=== PATIENT | female | born 1995 | race Caucasian/White ===

== ENCOUNTER 2021-03-23 08:08 | Inpatient (IN) | payer BC, MEDICAID, SELFPAY ==
[2021-03-23] VITALS (55 sets, daily range): BP systolic 94–135; BP diastolic 54–93; PULSE 76–105; RESP 16–18; TEMP 35.9–36.8; O2SAT 99–100; BMI 33.7
[2021-03-23] MEDS: dextrose 5%-lactated ringers 1,000 ML 125 ML IV (08:58)
[2021-03-23] MEDS: oxytocin 30 UNIT/500 ML BAG IV (08:58)
[2021-03-23 09:15] LABS: Basophils % 0.3 %; Eosinophils # 0.1 10^3/uL (0.0-0.8); Eosinophils % 0.8 %; Hematocrit 35.4 % (37.0-47.0); Hemoglobin 11.9 g/dL (11.5-15.3); Lymphocytes # 1.7 10^3/uL (0.8-4.8); Mean Corpuscular HGB Conc 33.6 g/dL (30.0-36.0); Mean Corpuscular Hemoglobin 28.2 pg (28.0-34.0); Mean Corpuscular Volume 83.9 fl (81-99); Mean Platelet Volume 11.1 fL (7.4-10.4); Monocytes # 0.7 10^3/uL (0.2-0.9); Monocytes % 8.3 %; Neutrophils # 5.53 10^3/uL (1.8-7.7); Neutrophils % 69.2 %; Nucleated Red Blood Cells % 0 %; Platelet Count 207 10^3/cmm (130-400); Red Blood Count 4.22 10^6/uL (4.1-5.3); Red Cell Distribution Width 13.4 % (12.1-15.1)
--- NOTE | 2021-03-23 12:41 | PM.OPHPUD ---
Labor & Delivery H&P Update Date of Procedure: March 23, 2021 Date H&P Performed: 03/19/21 Admission Diagnosis: induction
[2021-03-23] MEDS: fentaNYL 50 mcg/mL INJ 2mL IVP (14:45)
[2021-03-23] MEDS: lactated ringers 1,000 ML 999 ML IV (14:47)
--- NOTE | 2021-03-23 15:52 | P.ANESASSM_ITS ---
Pre-Anesthetic Assessment Pre-Anesthetic Assessment: Height/Weight: Height 1.68 m Weight 94.801 kg Temp Pulse Resp BP Pulse Ox 97.3 F L 96 17 115/57 99 03/23/21 12:31 03/23/21 15:50 03/23/21 14:45 03/23/21 15:48 03/23/21 15:50 Preop Diagnosis: Active Labor Familial anesthetic complications: none Was Beta Delisa taken within 24 hours: N/A Was Clonidine taken within 24 hours: N/A Last intake: meal 0630 clear liquids Social: Social History: No alcohol and No tobacco Exam: Pre-Anes Outpt Exam: alert, oriented x 3 and clear to auscultation bilaterally Airway: Submandibular: WNL Cervical ROM: WNL MP: 2 Dentition: Full History/ROS: No significant history except as noted Pulmonary: Pulmonary: None reported CV/HEM: CV/HEM: None reported : : None reported Hepatic: Hepatic: None reported GI: GI: None reported Metabolic: Metabolic: None reported Musc/skel: Musc/skel: None reported Neuropsych: Neuropsych: None reported Anesthetic Plan: ASA status: 2 Anesthesia: Eval. for regional block Risk of > 500 ml blood loss (7ml/kg in children): No Meds/Allergies Current Medications: Current Medications Generic Name Dose Route Start Last Admin Trade Name Freq PRN Reason Stop Dose Admin Fentanyl 25 - 100 mcg 03/23/21 14:34 03/23/21 14:45 Fentanyl 50 Mcg/ Ml Inj 2ml IVP 25 mcg Q1H PRN Administration SEVERE PAIN Oxytocin 30 unit in 500 ml s @ 1 mls/hr 03/23/21 08:30 03/23/21 12:00 Pitocin IV 20 milliunit/min .Q24H SHAYNE 20 mls/hr Titration Protocol 1 MILLIUNIT/MIN Dextrose/Lactated Ringer's 1,000 mls @ 125 m ls/hr 03/23/21 08:30 03/23/21 14:47 Dextrose 5%-Lact ated Ringers IV Infused .Q8H SHAYNE Infusion Ropivacaine 200 mg in 100 mls @ 13 mls/hr 03/23/21 12:15 03/23/21 15:31 Naropin Premix EPIDURAL 13 mls/hr .Q7H42M SHAYNE Administration Lactated Ringer's 1,000 mls @ 999 m ls/hr 03/23/21 12:12 03/23/21 14:47 Lactated Ringers IV 999 mls/hr .Q1H1M PRN Administration See label comment s PFSH Anesthesia Female Reproductive History: : 2 Data Anesthesia CBC & Chem 7: 03/23/21 08:30 Other Labs: Laboratory Results - last 48 hr 03/23/21 08:30 WBC 8.0 RBC 4.22 Hgb 11.9 Hct 35.4 L MCV 83.9 MCH 28.2 MCHC 33.6 RDW 13.4 Plt Count 207 MPV 11.1 H Neut % (Auto) 69.2 Lymph % (Auto) 21.0 [place] % (Auto) 8.3 Eos % (Auto) 0.8 Baso % (Auto) 0.3 Neut # (Auto) 5.53 Lymph # (Auto) 1.7 [place] # (Auto) 0.7 Eos # (Auto) 0.1 Baso # (Auto) 0.0 Nucleated RBC % (auto) 0 Nucleated RBCs # 0.0 Cardiac Studies: No Data to Display
--- NOTE | 2021-03-23 15:55 | ANES.PROC ---
Anesthesia Procedures Procedure/Date: 03/23/21 Epidural: Time Out Performed: Yes Consents Signed: Procedure Consent Consent: from patient, risks and benefits reviewed and patient agrees to proceed Lumbar Level: L3-L4 Epidural position: sitting Epidural procedure: 1% lidocaine to numb the area, negative for paresthesia passed, test dose given, no systemic response, sterile dressing applied, L.U.D. no apparent complications and 0.2% Ropiavacaine @ mls/hr (13) Additional Comments: LUDMILA at 7cm catheter threaded to 13 cm
--- NOTE | 2021-03-23 18:44 | P.PCNOB_ITS ---
Delivery Note: Date of delivery: March 23, 2021 Pre-Delivery Course: The patient had routine care at [facility]. There were no complications during the . Delivery: This is a 26-year-old G2, P1 at 39 weeks gestation who is here for an elective induction. The patient chose to undergo induction to avoid being hospitalized over the holiday. She was favorable for induction and started on high-dose Pitocin. She had artificial rupture of membranes with clear fluid. Rupture of membranes was approximately 6-1/2 hours prior to delivery. The patient received an epidural for pain management. She had a normal spontaneous vaginal delivery. There was a 70 sec shoulder dystocia that was resolved with Adair and corkscrew. The was delivered stunned. Weight 3700 g, 8 pounds 3 ounces, Apgars of 5 and 9. The placenta was delivered grossly intact and normal to inspection. There was a second-degree perineal laceration that was sutured using 3-0 chromic. Mother and infant were doing well after delivery. Estimated blood loss 250 mL. Coding Level of Care Code Acute Hydroelectric Production Technician for Kenyetta Reeves
[2021-03-23] MEDS: ibuprofen 800 mg tablet PO (21:26)
[2021-03-23] MEDS: benzocaine-menthol 78 gm Canister 1 SPRAY TOPICAL (21:27)
[2021-03-24] VITALS (23 sets, daily range): BP systolic 97–124; BP diastolic 59–80; PULSE 71–102; RESP 14–25; TEMP 35.8–37.1; O2SAT 96–98
[2021-03-24 07:12] LABS: Hematocrit 34.3 % (37.0-47.0); Hemoglobin 11.4 g/dL (11.5-15.3); Mean Corpuscular HGB Conc 33.2 g/dL (30.0-36.0); Mean Corpuscular Hemoglobin 27.9 pg (28.0-34.0); Mean Corpuscular Volume 84.1 fl (81-99); Mean Platelet Volume 10.4 fL (7.4-10.4); Platelet Count 209 10^3/cmm (130-400); Red Blood Count 4.08 10^6/uL (4.1-5.3); Red Cell Distribution Width 13.5 % (12.1-15.1); White Blood Count 9.6 10^3/uL (4.0-10.0)
--- NOTE | 2021-03-24 10:25 | ANE.PACU2 ---
Inpatient post-anesthesia follow up: Airway intact: Yes Vital signs: Temperature 97.9 F Pulse Rate 75 Respiratory Rate 18 Blood Pressure 97/59 Pulse Oximetry 100 Oxygen Delivery Me thod Room Air Oxygen Flow Rate Fraction of Inspir ed Oxygen Hydration adequate: Yes Nausea and vomiting: No Pain level: 1 Mental status: Baseline Additional Comments: EMR review
--- NOTE | 2021-03-24 11:07 | PC.NURSE ---
Surgery staff transporting patient via bed to OR.
--- NOTE | 2021-03-24 11:31 | P.ANESASSM_ITS ---
Pre-Anesthetic Assessment Pre-Anesthetic Assessment: Height/Weight: Height 1.68 m Weight 94.801 kg Temp Pulse Resp BP Pulse Ox 97.8 F 71 18 117/72 96 03/24/21 11:22 03/24/21 11:22 03/24/21 11:22 03/24/21 11:22 03/24/21 11:22 Preop Diagnosis: Active Labor Proposed Procedure: Operation Date: 03/24/21 12:00 Proposed Procedures p Bilateral Tubal Ligation(Not Applicable) - Aida Dorman MD Was Beta Delisa taken within 24 hours: N/A Was Clonidine taken within 24 hours: N/A Social: Social History: No alcohol and No tobacco Exam: Pre-Anes Outpt Exam: alert, oriented x 3, clear to auscultation bilaterally and regular rate & rhythm Airway: Submandibular: WNL Cervical ROM: WNL MP: 2 Dentition: Full History/ROS: No significant history except as noted and No significant complaints Pulmonary: Pulmonary: None reported CV/HEM: CV/HEM: None reported : : None reported Hepatic: Hepatic: None reported GI: GI: None reported Metabolic: Metabolic: None reported Musc/skel: Musc/skel: None reported Neuropsych: Neuropsych: None reported Anesthetic Plan: ASA status: 2 Anesthesia: Anesthesia Evaluation and General Risk of > 500 ml blood loss (7ml/kg in children): No Meds/Allergies Current Medications: Current Medications Generic Name Dose Route Start Last Admin Trade Name Freq PRN Reason Stop Dose Admin Benzocaine 1 spray 03/23/21 19:04 03/23/21 21:27 Benzocaine-Menth ol 78 Gm Canister TOPICAL 1 can PRN PRN Administration PAIN Docusate Sodium 100 mg 03/24/21 09:00 03/24/21 09:04 Docusate Sodium 100 Mg Capsule PO Not Given BID SHAYNE Ibuprofen 800 mg 03/23/21 21:00 03/24/21 09:04 Ibuprofen 800 Mg Tablet PO Not Given TID SHAYNE Multivit/ Folic Acid/Iron 1 cap 03/24/21 09:00 03/24/21 09:04 Vitamin Capsule PO Not Given DAILY SHAYNE PFSH Anesthesia Female Reproductive History: : 2 Data Anesthesia CBC & Chem 7: 03/24/21 06:53 Other Labs: Laboratory Results - last 48 hr 03/23/21 03/24/21 08:30 06:53 WBC 8.0 9.6 RBC 4.22 4.08 L Hgb 11.9 11.4 L Hct 35.4 L 34.3 L MCV 83.9 84.1 MCH 28.2 27.9 L MCHC 33.6 33.2 RDW 13.4 13.5 Plt Count 207 209 MPV 11.1 H 10.4 Neut % (Auto) 69.2 Lymph % (Auto) 21.0 [place] % (Auto) 8.3 Eos % (Auto) 0.8 Baso % (Auto) 0.3 Neut # (Auto) 5.53 Lymph # (Auto) 1.7 [place] # (Auto) 0.7 Eos # (Auto) 0.1 Baso # (Auto) 0.0 Nucleated RBC % (auto) 0 Nucleated RBCs # 0.0 Cardiac Studies: No Data to Display
[2021-03-24] MEDS: sodium chloride 0.9% 1,000 ML 30 ML IV (11:38)
--- NOTE | 2021-03-24 13:04 | P.OP_ITS ---
Operative Report Date of procedure: March 24, 2021 Pre-op Diagnosis: Desired permanent surgical sterilization Post-op diagnosis: same Procedure Done: bilateral tubal ligation Specimens removed/disposition: Segments of right and left fallopian tubes Pathology: Segments of right and left fallopian tubes Director Fraud: Aida Dorman MD Anesthesia: General Estimated blood loss (mL): 2 IV fluids (mL): 600 Condition: stable Disposition: PACU Procedure: The infant was the patient was taken to the OR where general anesthe grecia was administered. She was prepped and draped in normal sterile fashion in dorsal supine position. A curvilinear infraumbilical incision was made and carried through to the under lying layer of fascia bluntly using a hemostat. The fascia was grasped with Allis clamps and entered sharply using the Metzenbaums. Initial attempts to localize the left fallopian tube resulted in simply grabbing omentum. Direction was then placed toward the right fallopian tube where it was easily identified and grasped with a Anthony. It was brought into the operative field. [place] were identified. A distal segment of the tube was ligated and excised. Specimen was sent to pathology. Tubal ostia were visualized. The cut portions of the tube were coagulated using the Bovie and after hemostasis was verified the cut portion of the tube was returned to the abdomen. The left fallopian tube was then easily identified and brought into the operative field using [place]. [place] were identified. A midportion of the tube was ligated and excised. Specimens were sent to pathology. Tubal ostia were visualized. The cut portions of the tube were coagulated using the Bovie and after hemostasis was obtained they were returned to the abdomen. The fascia and peritoneum was then reapproximated using 0 Vicryl in a running fashion. The skin was then reapproximated using 4-0 Vicryl in a running fashio n. 10 mL of lidocaine was injected circumferentially around the incision site. Steri-Strips and a pressure bandage were applied and patient went to recovery in good condition.
[2021-03-24] MEDS: fentaNYL 50 mcg/mL INJ 2mL IVP (13:21)
--- NOTE | 2021-03-24 14:21 | PC.NURSE ---
Patient brought to OB floor by OR nurse via bed.
[2021-03-24] MEDS: ibuprofen 800 mg tablet PO (15:30)
--- NOTE | 2021-03-24 15:31 | ANE.PACU2 ---
Inpatient post-anesthesia follow up: Airway intact: Yes Vital signs: Temperature 97.5 F Pulse Rate 98 Respiratory Rate 18 Blood Pressure 118/74 Pulse Oximetry 98 Oxygen Delivery Me thod Room Air Oxygen Flow Rate Fraction of Inspir ed Oxygen Hydration adequate: Yes Nausea and vomiting: No Pain level: 3 Mental status: Baseline
--- NOTE | 2021-03-24 17:25 | PM.OBGYDC ---
Discharge Providers [employer]OC[employer]ESS[employer] PATH[employer] Date of Admission: 03/23/21 08:08 Date of Discharge: 03/24/21 Attending Provider at Admission: Aida Dorman MD Attending Provider at Discharge: Aida Dorman MD Primary Care Provider: Aida Dorman MD Diagnoses at Discharge Discharge Diagnosis (1) Normal spontaneous vaginal delivery: Status: Acute (2) Status post tubal ligation at time of delivery, current hospitalization: Status: Acute Reason for Visit Reason for Visit: Induction Hospital Course Hospital Course This is a 26-year-old G2 now P2 who was admitted for an elective induction. She had a normal spontaneous vaginal delivery of a viable male . On day #1 she underwent a bilateral tubal ligation. Later that evening she was ambulating, had good pain control, had average vaginal bleeding and was requesting discharge home. Information Peripartum Data: Infant Delivery Method: Vaginal Physical Exam Narrative: EXAM NARRATIVE: Alert and oriented, sitting on bedside couch. Regular rate and rhythm, clear to auscultation bilaterally, abdomen is soft with appropriate postoperative tenderness, extremities have some nonpitting edema. Urinary Catheter Management^: [place]: Cath Placed During This Visit: yes, but has since been removed by the nurse Reason for Continuing Indwelling Catheter: Decision to DC Catheter Urinary Catheter Date of Insertion: 03/23/21 Urinary Catheter Time of Insertion: 16:00 Date Urinary Catheter Removed: 03/23/21 Time Urinary Catheter Discontinued: 18:13 Discharge Data Data Completed and Pending: Pending at discharge Category Date Time Status Hemagram Timed Lab 03/25/21 01:13 Uncollected Pathology: Surgic al [PTH] Routine Pth 03/24/21 13:14 Received Labs from last 24 hours 03/24/21 06:53 WBC 9.6 RBC 4.08 L Hgb 11.4 L Hct 34.3 L MCV 84.1 MCH 27.9 L MCHC 33.2 RDW 13.5 Plt Count 209 MPV 10.4 Vitals: Last Vital Signs Temp 97.5 F L 03/24/21 15:29 Pulse 102 H 03/24/21 17:10 Resp 18 03/24/21 14:06 BP 119/72 03/24/21 17:10 Pulse Ox 98 03/24/21 13:45 Discharge Plan Discharge Patient Disposition: Home Condition: Stable Prescriptions: New hydrocodone-acetaminophen 5-325 mg Tablet 1 - 2 tab PO Q6H PRN (Reason: Abdominal Pain) Qty: 10 RF: 0 No Action No Known Home Medications RF: 0 Discharge Orders: Discharge Order (Routine); Ordered 03/24/21 Ordered By: Aida Dorman Referrals: Aida Dorman MD [Primary Care Provider] - 2 weeks Discharge Diet: Usual diet Discharge Activity: Limit activity as instructed Patient Instructions: Opioid Safety Discharge Attestations [employer]OC[employer]ATE [employer] Time Spent in Discharge Care*: less than 30 min Coding Level of Care Code Acute Energy Sales Consultant for Chg Fwd Diagnoses Normal spontaneous vaginal delivery O80 Status post tubal ligation at time of delivery, current hospitalization O80; Z30.2
[2021-03-24] MEDS: benzocaine-menthol 78 gm Canister 1 SPRAY TOPICAL (19:58)
== END 2021-03-24 20:10 | disposition home or self-care (01) | DRG 798 ==
PROVIDERS: Admitting Provider Family Medicine; PCP Family Medicine; Visit Provider Family Medicine
PROC: 0U574ZZ Destruction of Bilateral Fallopian Tubes, Percutaneous Endoscopic Approach (ICD-10-PCS; CPT 58605; principal; 2021-03-24 12:00)
DX: O66.0 Obstructed labor due to shoulder dystocia (principal); Z37.0 Single live birth; O70.1 Second degree perineal laceration during delivery; Z3A.39 39 weeks gestation of pregnancy; Z30.2 Encounter for sterilization
CPT/HCPCS: 36415; 51702; 59025; 59409; 85025; 85027; 88302; 98960; 99211; J1100; J1885; J2405; J2704; J2710; J2795; J3010; J3490; J7030

== ENCOUNTER → 2022-03-21 14:27 | Outpatient (BNVA) | payer BC, MEDICAID, SELFPAY | PROVIDERS: PCP Family Medicine; Visit Provider Emergency Medicine | DX: J02.9 Acute pharyngitis, unspecified (principal) | CPT/HCPCS: 87071; 87880 ==

== ENCOUNTER → 2025-03-22 15:43 | Outpatient (BNVA) | payer OTHER, MEDICAID, SELFPAY | PROVIDERS: PCP Nurse Practitioner Family; Visit Provider Nurse Practitioner Family | DX: Z12.4 Encounter for screening for malignant neoplasm of cervix (principal) | CPT/HCPCS: 88175 ==